=== PATIENT | male | born 1950 | race Caucasian/White ===

== ENCOUNTER → 2020-07-18 07:29 | Outpatient (CLI) | payer MEDICARE, SELFPAY ==
[2020-07-18 09:14] LABS: Add Manual Diff / Slide Review NO; Basophils Absolute Auto 0 /uL (0-100); Basophils Percent Auto 0.7 % (0-2); Eosinophils Absolute Auto 200 /uL (0-450); Eosinophils Percent Auto 3.7 % (2-4); Hematocrit 44.3 % (41-53); Hemoglobin 15.2 g/dL (13.5-17.5); Lymphocytes Absolute Auto 1400 /uL (1100-4500); Lymphocytes Percent Auto 24.1 % (25-40); Mean Corpuscular HGB Conc 34.4 % (30-36); Mean Corpuscular Hemoglobin 31.6 PG (26-34); Mean Corpuscular Volume 91.9 fL (80-100); Monocytes Absolute Auto 500 /uL (0-900); Neutrophils Absolute Auto 3700 /uL (1500-7000); Neutrophils Percent Auto 63.5 % (50-75); Platelet Count 141 X10^3/uL (150-400); Red Blood Cell Count 4.81 X10^6/uL (4.5-5.9); Red Cell Distribution Width 13.4 % (11.6-14.8); White Blood Cell Count 5.7 X10^3/uL (4.5-11.0)
[2020-07-18 09:49] LABS: Alanine Aminotransferase 22 IU/L (<50); Albumin 4.3 g/dL (3.5-5.0); Albumin Globulin Ratio 1.6 (1.0-2.8); Alkaline Phosphatase 71 U/L (38-126); Aspartate Aminotransferase 25 IU/L (17-59); BUN Creatinine Ratio 18.4 (6-22); Bilirubin Total 0.5 mg/dL (0.2-1.3); Blood Urea Nitrogen 16 mg/dL (9-20); Calcium 9.8 mg/dL (8.4-10.2); Carbon Dioxide 26 mmol/L (22-32); Chloride 106 mmol/L (98-107); Cholesterol 186 mg/dL (140-199); Estimated Glomerular Filt Rate > 60.0 mL/min (>60); Globulin 2.7 g/dL (1.7-4.1); Glucose 121 mg/dL (80-110); HDL Cholesterol 36 mg/dL (40-60); LDL Cholesterol Calculated 127 mg/dL (<100); Potassium 4.3 mmol/L (3.4-5.1); Sodium 141 mmol/L (137-145); Triglycerides 117 mg/dL (35-150)
[2020-07-18 11:22] LABS: Creatinine Urine Random 94.3 mg/dL
[2020-07-18 11:28] LABS: Microalbumin Urine Random 1.7 mg/dL (0-1.6)
[2020-07-18 17:58] LABS: HEMOLYSIS < 15 (0-50); Prostate Specific Antigen Scrn 9.58 ng/mL (0.1-4.0)
== END ==
PROVIDERS: PCP Family Medicine; Referring Provider Family Medicine; Visit Provider Family Medicine
DX: E66.9 Obesity, unspecified (principal); Z12.5 Encounter for screening for malignant neoplasm of prostate; I10 Essential (primary) hypertension; Z12.11 Encounter for screening for malignant neoplasm of colon
CPT/HCPCS: 36415; 80053; 80061; 82043; 82570; 85025; G0103

== ENCOUNTER 2020-08-26 08:56 | Emergency (ER) | payer MEDICARE, SELFPAY ==
[2020-08-26] VITALS (8 sets, daily range): BP systolic 171–238; BP diastolic 81–103; PULSE 69–83; RESP 12–16; TEMP 36.7; O2SAT 95–99
--- NOTE | 2020-08-26 10:06 | ED.ABDPAIN ---
HPI - Abdominal Pain General Chief Complaint: Abdominal Pain Stated Complaint: pain in left side, started Wednesday Time Seen by Provider: 08/26/20 10:06 Source: patient and family () Mode of arrival: Ambulatory Limitations: no limitations History of Present Illness HPI narrative: Pleasant 70-year-old male comes emergency department with complaint of left lower quadrant pain that started Wednesday. Patient notes that it did start after he had moved and lifted a heavy more but he does not appreciate any back pain. Patient states it did not seem to occur exactly when that happened he did not appreciate any tweaking or spasm of his muscles are back. Patient states since then he has had some nausea and he vomited twice on Wednesday. He states he has not had any bowel movement since Wednesday. He states he is not passing any gas or flatus. He states he has been urinating. He denies any back or flank pain. He denies any chest pain or shortness of breath. He denies any syncope. Patient states he does not take any medications regularly. He denies any other past medical history. He denies any prior surgeries. He denies any allergies to medications. No tobacco, alcohol or illicit. Dr. Tucker is his PCP. Related Data Previous Rx's Medication Instructions Recorded hydrocodone-acetaminophen 1 tab PO Q6H PRN #10 tab 08/26/20 tamsulosin [Flomax] 0.4 mg PO DAILY #7 cap 08/26/20 Allergies Allergy/AdvReac Type Severity Reaction Status Date / Time No Known Drug Allergies Allergy Verified 08/26/20 09:36 Review of Systems Review of Systems ROS Unobtainable: All systems reviewed & are unremarkable except as noted in HPI and below Patient History Surgical History Anesthesia History of Achilles tendon repair Family History (Updated 04/10/19 @ 19:31 by Tiffany Macdonald) Father Kidney failure Social History Smoking Status: Former smoker Smoking Status: Former smoker alcohol intake frequency: 0-2 drinks per day Substance Use Type: does not use Exam Narrative Exam Narrative: GENERAL: Alert and oriented x three, well-nourished male in mild distress. HEENT: Head normocephalic, atraumatic, EOMI, pupils reactive, face symmetric, moist mucous membranes NECK: Supple, full range of motion CARDIOVASCULAR: Regular rate and rhythm without murmurs, rubs or gallops. RESPIRATORY: Breath sounds equal bilaterally, no wheezes rales or rhonchi. ABDOMEN: Soft, nontender. Normoactive bowel sounds all 4 quadrants. No guarding or rebound, rigidity, no mass. BACK: No cervical, thoracic or lumbar vertebral point tenderness. Patient has normal range of motion. Patient's gait is [antalgic/normal]. : No CVA tenderness EXTREMITIES: Normal range of motion, no clubbing or edema. Neurovascularly intact. Cap refill less than 2 seconds. NEUROLOGICAL: Cranial nerves II through XII grossly intact. Moving all extremities SKIN: Warm, dry, no petechiae, no rashes or lesions. Initial Vital Signs Initial Vital Signs: Vital Signs Temperature 98.1 F 08/26/20 09:32 Pulse Rate 83 08/26/20 09:32 Respiratory Rate 14 08/26/20 09:32 Blood Pressure 238/103 H 08/26/20 09:32 Pulse Oximetry 96 08/26/20 09:32 Course Orders Ordered: ED Orders 08/26/20 12:13 CT abdomen pelvis w con Stat 08/26/20 12:40 UA Complete [Urinalysis and Microscopic] Stat Discontinued Medications Sodium Chloride (Normal Saline 0.9%) 1,000 mls @ 1,000 mls/hr IV BOLUS ONE Stop: 08/26/20 10:35 Last Infusion: 08/26/20 13:20 Dose: 0 mls/hr Documented by: JOSE M Admin: 08/26/20 11:18 Dose: 1,000 mls/hr Documented by: ROHAN Tamsulosin HCl (Tamsulosin 0.4 Mg Capsule) 0.4 mg PO NOW ONE Stop: 08/26/20 13:13 Last Admin: 08/26/20 13:20 Dose: 0.4 mg Documented by: JOSE M Vital Signs Vital signs: Vital Signs - 8 hr 08/26/20 11:30 08/26/20 12:00 08/26/20 13:32 Pulse Rate 69 69 82 Respiratory Rate 12 12 16 Blood Pressure 185/88 H 179/86 H 180/89 H Pulse Oximetry 99 97 97 MDM - Abdominal Pain Lab Data Attestation: I reviewed the patient's lab results. Result diagrams: 08/26/20 09:50 08/26/20 09:50 Labs: Lab Results 08/26/20 08/26/20 08/26/20 Range/Units 09:50 09:50 12:40 WBC 10.0 (4.5-11.0) X10^3/uL RBC 4.95 (4.5-5.9) X10^6/uL Hgb 15.6 (13.5-17.5) g/dL Hct 45.4 (41-53) % MCV 91.7 (80-100) fL MCH 31.4 (26-34) PG MCHC 34.3 (30-36) % RDW 13.9 (11.6-14.8) % Plt Count 156 (150-400) X10^3/uL Neut % (Auto) 80.4 H (50-75) % Lymph % (Auto) 10.1 L (25-40) % Casey % (Auto) 8.7 (3-14) % Eos % (Auto) 0.6 L (2-4) % Baso % (Auto) 0.2 (0-2) % Neut # (Auto) 8100 H (9622-7445) /uL Lymph # (Auto) 1000 L (4765-1336) /uL Casey # (Auto) 900 (0-900) /uL Eos # (Auto) 100 (0-450) /uL Baso # (Auto) 0 (0-100) /uL Sodium 140 (137-145) mmol/L Potassium 4.0 (3.4-5.1) mmol/L Chloride 105 (98-107) mmol/L Carbon Dioxide 24 (22-32) mmol/L BUN 19 (9-20) mg/dL Creatinine 1.20 (0.66-1.25) mg/dL Estimated GFR 59.9 L (>60) mL/min BUN/Creatinine Ratio 15.8 (6-22) Glucose 136 H (80-110) mg/dL Calcium 9.8 (8.4-10.2) mg/dL Total Bilirubin 1.0 (0.2-1.3) mg/dL AST 44 (17-59) IU/L ALT 22 (<50) IU/L Alkaline Phosphatase 76 (38-126) U/L Total Protein 7.8 (6.3-8.2) g/dL Albumin 4.4 (3.5-5.0) g/dL Globulin 3.4 (1.7-4.1) g/dL Albumin/Globulin Ratio 1.3 (1.0-2.8) Lipase 145 (23-300) U/L Urine Color Yellow Urine Appearance Clear Urine pH 5.5 (4.5-8.0) Ur Specific [place] 1.015 (1.000-1.035) Urine Protein Negative (Negative) Urine Glucose (UA) Negative (Negative) g/dL Urine Ketones Trace H (NEGATIVE) Urine Occult Blood 3+ H (Negative) Urine Nitrate Negative (Negative) Urine Bilirubin Negative (NEGATIVE) Urine Urobilinogen 0.2 (0.2) E.U./dL Ur Leukocyte Esterase Negative (NEGATIVE) Urine RBC 10-30/hpf H (0-5/HPF) Urine WBC 0-1/hpf (0-5/HPF) Ur Squamous Epith Cells 0-1 /hpf (0-5/HPF) Urine Bacteria Occasional (0-1) (None) Ur Culture Indicated? Cult not indicated Imaging Data CT scan - abdomen/pelvis: Radiologist's Impression: [address] Scan ReportSigned Patient: Johnny Madison LMR#: [id number]: 1950cct:[id number]/Sex: 70 / MDate of Service: 08/26/20Loc: EDAccession Number: [id number] Procedure: CT abdomen pelvis w con Ordering Provider: Terese Fuentes D.O. PROCEDURE: CT ABDOMEN PELVIS W CON INDICATIONS: LLQ pain, no BM/no flatus x 2 days, + N TECHNIQUE: After the administration of intravenous contrast, axial sections acquired from the lung bases to the pubic symphysis. Coronal and sagittal reformats were performed. For radiation dose reduction, the following was used: automated exposure control, adjustment of mA and/or kV according to patient size. COMPARISON: None. FINDINGS: Image quality: Excellent. Lung bases: Dependent atelectasis. Small hiatal hernia. Heart: No significant findings. There is moderate coronary artery calcification. ABDOMEN: Liver: Mild hepatic steatosis. Gallbladder: Contains gallstones. No gallbladder wall thickening or pericholecystic fluid collection. Biliary ducts: Unremarkable. Pancreas: Unremarkable. Spleen: Unremarkable. Adrenal Glands: Unremarkable. Kidneys and Ureters: Small renal calculi are seen bilaterally. There is a 4 mm stone in the inferior pole of the right kidney. A couple of 2-3 mm stones are seen in left kidney 1 in the superior pole and 1 in the inferior pole. There is a elongated stone in the proximal left ureter measuring 5 x [address] density 808 HU. Mild left renal pelviectasis and hydroureter proximal to the stone. Bilateral renal cysts.. Stomach and Bowel: Stomach, small bowel loops, and colon are normal in caliber. There is fat stranding adjacent to the descending colon, suggesting epiploic appendagitis. There is a large amount of stool in colon. Peritoneum: No abnormal intraperitoneal fluid. No free air. Ventral Wall: No hernias. Abdominal Nodes: No retroperitoneal or mesenteric adenopathy by size criteria. Vessels: Aorta and inferior vena cava are normal in size. PELVIS: Pelvic Organs: Unremarkable. Bladder: Bladder is distended. Bladder wall thickness is normal. Prostate is mildly enlarged.. Pelvic Nodes: No enlarged lymph nodes. Miscellaneous: No hernias are seen. Bones: Unremarkable. There is are degenerative disc and facet disease disease lower thoracic spine and lumbar spine, most pronounced at L5-S1. IMPRESSION: 1. A 5 x 11 mm obstructive stone is seen within the proximal left ureter measuring with CT density 808 HU. There is mild left hydronephrosis. Several nonobstructive renal calculi are seen bilaterally. 2. There is fat stranding adjacent to the descending colon, suggesting epiploic appendagitis. A differential diagnosis is diverticulitis. Recommend clinical correlation. 3. A large amount of stool in colon. 4. Cholelithiasis. 5. Prostate is prominent. Distended urinary bladder, which may be secondary to intentional holding or bladder outlet obstruction. The result was discussed with Dr. Fuentes Dictated by: Suad Peña M.D. on 08/26/2020 at 12:40 Approved by: Suad Peña M.D. on 08/26/2020 at 13:13 ECG Data Attestation: I personally reviewed and interpreted this ECG as follows: Prior ECG tracings: not available for review Interpretation: Sinus rhythm Q-wave in 3. No ST elevation or depression appreciated. MDM Narrative Medical decision making narrative: 70-year-old male with pain on his left side started Wednesday. About able to reproduce his symptoms but is appropriate location for possible kidney stone although he states pain is always been in the anterior and has not had any flank or back pain. Patient has been afebrile. Denies any other urinary symptoms but has had some nausea as well as he states no bowel movements or flatus. CT actually shows a kidney stone, there is also some epiploic appendagitis. Discussed both these findings with the patient that there was some inflammation of the fat in the bowel but this did not require any specific treatment. He was put on Flomax for the stone. Given a prescription for pain medication and referral to Urology as based on the size there may be some difficulty with him passing out he may need additional intervention. Today his renal functions appropriate. There is no signs of infection or obstructed stone or septic obstructive stone and patient felt comfortable returning home. All questions were answered. Return precautions were discussed. Discharge Plan Departure Patient Disposition: Home Clinical Impression: Kidney stone on left side Instructions: DI for Kidney Stones Activity Restrictions/Additional Instructions: Please follow-up with urology for recheck in the next 2-3 days. Included is referral to Urology please call for an appointment. Please take Flomax once daily until gone. You may take ibuprofen up to 800 mg every 8 hours as needed. You may take Tylenol up to a 1000 mg every 8 hours as needed. You may take these in combination. If this is an adequate you may take [place] instead of Tylenol. This medication can make you sleepy do not drive, perform hazardous activities or make any major decisions while taking it. This medication will make you constipated please take a stool softener once to twice daily until stools are soft and regular. Prescription sent to [facility] in [place]. Return for fevers, inability urinate, rapidly worsening abdominal, back or flank pain, persistent vomiting, black or bloody stools, lightheadedness or passing out or other new or concerning symptoms. Prescriptions: New tamsulosin [Flomax] 0.4 mg capsule 0.4 mg PO DAILY Qty: 7 RF: 0 hydrocodone-acetaminophen 5-325 mg tablet 1 tab PO Q6H PRN (Reason: pain) Qty: 10 RF: 0 Referrals: Apolinar Tucker MD [Primary Care Provider] - Kerline Sweeney MD [Physician] -
[2020-08-26 10:13] LABS: Add Manual Diff / Slide Review NO; Basophils Absolute Auto 0 /uL (0-100); Basophils Percent Auto 0.2 % (0-2); Eosinophils Absolute Auto 100 /uL (0-450); Eosinophils Percent Auto 0.6 % (2-4); Hematocrit 45.4 % (41-53); Hemoglobin 15.6 g/dL (13.5-17.5); Lymphocytes Absolute Auto 1000 /uL (1100-4500); Lymphocytes Percent Auto 10.1 % (25-40); Mean Corpuscular HGB Conc 34.3 % (30-36); Mean Corpuscular Hemoglobin 31.4 PG (26-34); Mean Corpuscular Volume 91.7 fL (80-100); Monocytes Absolute Auto 900 /uL (0-900); Monocytes Percent Auto 8.7 % (3-14); Neutrophils Absolute Auto 8100 /uL (1500-7000); Neutrophils Percent Auto 80.4 % (50-75); Platelet Count 156 X10^3/uL (150-400); Red Blood Cell Count 4.95 X10^6/uL (4.5-5.9); Red Cell Distribution Width 13.9 % (11.6-14.8)
[2020-08-26 10:18] LABS: Alanine Aminotransferase 22 IU/L (<50); Albumin 4.4 g/dL (3.5-5.0); Albumin Globulin Ratio 1.3 (1.0-2.8); Alkaline Phosphatase 76 U/L (38-126); Aspartate Aminotransferase 44 IU/L (17-59); BUN Creatinine Ratio 15.8 (6-22); Blood Urea Nitrogen 19 mg/dL (9-20); Calcium 9.8 mg/dL (8.4-10.2); Carbon Dioxide 24 mmol/L (22-32); Chloride 105 mmol/L (98-107); Estimated Glomerular Filt Rate 59.9 mL/min (>60); Globulin 3.4 g/dL (1.7-4.1); Glucose 136 mg/dL (80-110); HEMOLYSIS 21 (0-50); Lipase 145 U/L (23-300); Sodium 140 mmol/L (137-145); Total Protein 7.8 g/dL (6.3-8.2)
[2020-08-26] MEDS: SODIUM CHLORIDE 0.9% 1,000 ML 1000 ML IV (11:18)
--- NOTE | 2020-08-26 12:13 | DI.CT.S_ITS ---
PROCEDURE: CT ABDOMEN PELVIS W CON INDICATIONS: LLQ pain, no BM/no flatus x 2 days, + N TECHNIQUE: After the administration of intravenous contrast, axial sections acquired from the lung bases to the pubic symphysis. Coronal and sagittal reformats were performed. For radiation dose reduction, the following was used: automated exposure control, adjustment of mA and/or kV according to patient size. COMPARISON: None. FINDINGS: Image quality: Excellent. Lung bases: Dependent atelectasis. Small hiatal hernia. Heart: No significant findings. There is moderate coronary artery calcification. ABDOMEN: Liver: Mild hepatic steatosis. Gallbladder: Contains gallstones. No gallbladder wall thickening or pericholecystic fluid collection. Biliary ducts: Unremarkable. Pancreas: Unremarkable. Spleen: Unremarkable. Adrenal Glands: Unremarkable. Kidneys and Ureters: Small renal calculi are seen bilaterally. There is a 4 mm stone in the inferior pole of the right kidney. A couple of 2-3 mm stones are seen in left kidney 1 in the superior pole and 1 in the inferior pole. There is a elongated stone in the proximal left ureter measuring 5 x [address] density 808 HU. Mild left renal pelviectasis and hydroureter proximal to the stone. Bilateral renal cysts.. Stomach and Bowel: Stomach, small bowel loops, and colon are normal in caliber. There is fat stranding adjacent to the descending colon, suggesting epiploic appendagitis. There is a large amount of stool in colon. Peritoneum: No abnormal intraperitoneal fluid. No free air. Ventral Wall: No hernias. Abdominal Nodes: No retroperitoneal or mesenteric adenopathy by size criteria. Vessels: Aorta and inferior vena cava are normal in size. PELVIS: Pelvic Organs: Unremarkable. Bladder: Bladder is distended. Bladder wall thickness is normal. Prostate is mildly enlarged.. Pelvic Nodes: No enlarged lymph nodes. Miscellaneous: No hernias are seen. Bones: Unremarkable. There is are degenerative disc and facet disease disease lower thoracic spine and lumbar spine, most pronounced at L5-S1. IMPRESSION: 1. A 5 x 11 mm obstructive stone is seen within the proximal left ureter measuring with CT density 808 HU. There is mild left hydronephrosis. Several nonobstructive renal calculi are seen bilaterally. 2. There is fat stranding adjacent to the descending colon, suggesting epiploic appendagitis. A differential diagnosis is diverticulitis. Recommend clinical correlation. 3. A large amount of stool in colon. 4. Cholelithiasis. 5. Prostate is prominent. Distended urinary bladder, which may be secondary to intentional holding or bladder outlet obstruction. The result was discussed with Dr. Fuentes Dictated by: Suad Peña M.D. on 08/26/2020 at 12:40 Approved by: Suad Peña M.D. on 08/26/2020 at 13:13
[2020-08-26 12:54] LABS: Appearance Urine UA CLEAR; Bilirubin Urine UA NEGATIVE (NEGATIVE); Color Urine UA YELLOW; Glucose Urine UA NEGATIVE (Negative); Ketones Urine UA TRACE (NEGATIVE); Leukocyte Esterase Urine UA NEGATIVE (NEGATIVE); Nitrite Urine UA NEGATIVE (Negative); Occult Blood Urine UA 3+ (Negative); Protein Urine UA NEGATIVE (Negative); Specific Gravity Urine UA 1.015 (1.000-1.035); Urobilinogen Urine UA 0.2 E.U./dL (0.2); pH Urine UA 5.5 (4.5-8.0)
[2020-08-26 13:16] LABS: Bacteria Urine Occasional (0-1); Culture Indicated Urine Cult Not Indicated; RBC Urine 10-30/HPF (0-5/HPF); Squamous Epithelial Cell Urine 0-1 /HPF (0-5/HPF); WBC Urine 0-1/HPF (0-5/HPF)
[2020-08-26] MEDS: TAMSULOSIN 0.4 MG CAPSULE PO (13:20)
== END 2020-08-26 13:33 | disposition home or self-care (01) ==
PROVIDERS: Emergency Provider Emergency Medicine; PCP Family Medicine
DX: N20.0 Calculus of kidney (principal); R11.2 Nausea with vomiting, unspecified
CPT/HCPCS: 36415; 74177; 80053; 81001; 83690; 85025; 93005; 93010; 96360; 96361; 99284

== ENCOUNTER → 2020-08-28 13:29 | Outpatient (CLI) | payer MEDICARE, SELFPAY ==
--- NOTE | 2020-08-28 13:31 | DI.RAD.S_ITS ---
PROCEDURE: XR KUB INDICATIONS: L side kidney stone TECHNIQUE: One view of the abdomen acquired. COMPARISON: [facility], CT, CT ABDOMEN PELVIS W CON, 08/26/2020, 12:21. FINDINGS: Surgical changes and devices: None. Bowel: Bowel gas pattern is normal. Soft tissues: 3 millimeter calcification projects over the lower pole of the left kidney. Visualized solid organ contours appear normal in size. Bones: No suspicious bony lesions. IMPRESSION: 3 millimeter inferior left renal stone identified. Additional renal stones previously identified by CT scan obtained August 26, 2020 are not seen by plain film radiograph. Dictated by: Claudine Ramos MD, PhD on 08/28/2020 at 14:08 Approved by: Claudine Ramos MD, PhD on 08/28/2020 at 14:10
[2020-08-28 15:06] LABS: Prostate Specific Antigen 6.73 ng/mL (0.10-4.00)
[2020-08-28 17:39] LABS: COVID19 -Nasal RAPID Negative (Negative)
== END ==
PROVIDERS: PCP Family Medicine; Referring Provider Specialist; Visit Provider Specialist
DX: Z20.822 Contact with and (suspected) exposure to COVID-19 (principal); N20.0 Calculus of kidney; N20.1 Calculus of ureter; R97.20 Elevated prostate specific antigen [PSA]
CPT/HCPCS: 36415; 74018; 84153; 87635; 99215

== ENCOUNTER 2020-08-29 15:33 | Day surgery (SDC) | payer MEDICARE, SELFPAY ==
[2020-08-29 16:10] VITALS: BP 205/87; PULSE 81; RESP 16; TEMP 37.3; O2SAT 97; BMI 30.4
[2020-08-29] MEDS: LACTATED RINGERS 1,000 ML 42 ML IV (16:21)
--- NOTE | 2020-08-29 16:29 | PM.PREOP ---
Pre-operative Note Interval Note History & Physical reviewed/Exam performed by Physician: Yes Changes to H&P: No
[2020-08-29] MEDS: CEFAZOLIN 1 GM VIAL 2 GM IV (16:49)
--- NOTE | 2020-08-29 16:56 | SUR.OPER ---
Lithotomy on padded OR bed, head on pillow, arms secured on padded arm boards at <90 degrees abduction. Legs secured in padded yellow fins stirrups.
--- NOTE | 2020-08-29 16:59 | P.OP_ITS ---
Operative Date/Time/Diagnoses Date of procedure: 08/29/20 Time of procedure: 16:59 Pre-op diagnosis: Obstructing 5 x 12 mm left proximal ureteral calculus Intractable left renal colic Post-op diagnosis: same Procedure & Clinicians Procedure: 1. Cystoscopy/left ureteral stone manipulation without removal. 2. Cystoscopy placement left ureteral stent (7 [place] by 22-32 cm multi- length)./ Same procedure as scheduled: Yes Indications: 1. Obstructing 5 x 12 mm left proximal ureteral calculus. 2. Intractable left renal colic. Click Yes if Unassisted: Yes Anesthesia Type: General Operative Notes Findings: 1. Urethra-normal. 2. External sphincter-coapted normal overlying urothelium. 3. Prostate-4.5 +cm length with moderate trilobar hyperplasia. 4. Bladder-1+ trabeculation. Normal ureteral orifices bilaterally. Of its of stone, tumor, or foreign body. There was a small organizing fragmented clot line dependently on the bladder floor. Closure Type: not applicable Specimen(s): none sent Applied: other (#7 [place] x 22-32 cm multi-length stent) Estimated Blood Loss (mL): 0 Blood products transfused: none Procedure in detail: Patient was positioned supine administered general anesthesia. He was then repositioned in semi lithotomy and the lower abdomen, genitalia, and groin were then prepped and draped in sterile fashion. Twenty- two [place] panendoscope was then passed lower urinary tract with the findings as described above. Next a 0.35 hybrid ureteral guidewire was selected advanced left collecting system under direct and fluoroscopic guidance. Over this a 7 [place] by 22-32 cm multi-length stent was selected. This too was advanced under direct fluoroscopic guidance over the hybrid guidewire. NO RETRIEVAL LINE WAS LEFT ATTACHED. The patient was then repositioned supine, awakened, transferred to [facility] and then transferred to recovery in stable condition. Complications: none Post-operative Condition: stable Disposition: PACU Plan for aftercare: Discharge home.
[2020-08-29 17:06] VITALS: BP 155/76; PULSE 80; RESP 13; TEMP 37.1; O2SAT 96
[2020-08-29 17:11] VITALS: BP 151/80; PULSE 81; RESP 12; O2SAT 95
[2020-08-29 17:16] VITALS: BP 167/86; PULSE 81; RESP 12; O2SAT 96
[2020-08-29 17:28] VITALS: BP 177/88; PULSE 81; RESP 12; TEMP 37.5; O2SAT 97
[2020-08-29 17:38] VITALS: BP 203/89; PULSE 82; RESP 18; TEMP 37.8; O2SAT 96
--- NOTE | 2020-08-29 17:49 | SUR.PHASEI ---
Dr. Sweeney spoke with pt at bedside. Pt with no pain. tolerated po fluids. called, available for coal picker. Pt dressed.
--- NOTE | 2020-08-29 18:07 | SUR.PHASEII ---
Pt left unit in stable condition.
== END 2020-08-29 17:55 | disposition home or self-care (01) ==
PROVIDERS: PCP Family Medicine; Referring Provider Specialist; Visit Provider Specialist
PROC: (CPT 52330; principal; 2020-08-29 16:30)
DX: N20.1 Calculus of ureter (principal); N40.0 Benign prostatic hyperplasia without lower urinary tract symptoms; E66.9 Obesity, unspecified; Z68.29 Body mass index [BMI] 29.0-29.9, adult
CPT/HCPCS: 52330; 52332; J0690; J1100; J2405; J2704; J3010

== ENCOUNTER → 2020-09-11 07:45 | Outpatient (CLI) | payer MEDICARE, SELFPAY ==
[2020-09-11 13:53] LABS: COVID19 -Nasal RAPID Negative (Negative)
== END ==
PROVIDERS: PCP Family Medicine; Visit Provider Specialist
DX: Z20.822 Contact with and (suspected) exposure to COVID-19 (principal)
CPT/HCPCS: 87635; C9803

== ENCOUNTER 2020-09-13 06:48 | Day surgery (SDC) | payer MEDICARE, SELFPAY ==
[2020-09-10 09:08] VITALS: BMI 29.5
[2020-09-13] VITALS (7 sets, daily range): BP systolic 146–180; BP diastolic 78–98; PULSE 72–118; RESP 10–16; TEMP 36.1–37.4; O2SAT 93–110; BMI 29.5
[2020-09-13] MEDS: LACTATED RINGERS 500 ML 25 ML IV (07:25)
--- NOTE | 2020-09-13 07:36 | PM.PREOP ---
Pre-operative Note Interval Note History & Physical reviewed/Exam performed by Physician: Yes Changes to H&P: No
[2020-09-13] MEDS: CEFAZOLIN 1 GM VIAL 2 GM IV (07:49)
--- NOTE | 2020-09-13 08:00 | SUR.OPER ---
Lithotomy on padded OR bed, head on pillow, arms secured on padded arm boards at <90 degrees abduction. Legs secured in padded yellow fins stirrups.
[2020-09-13] MEDS: IOPAMIDOL 15 ML VIAL INJ (08:26)
--- NOTE | 2020-09-13 08:47 | SUR.OPER ---
SOLTIVE LASER TOTAL ENERGY 2.805 KJ TOTAL TIME 5:51 MIN
--- NOTE | 2020-09-13 08:56 | P.OP_ITS ---
Operative Date/Time/Diagnoses Date of procedure: 09/13/20 Time of procedure: 08:57 Pre-op diagnosis: 1. 6 x 12 mm left mid ureteral calculus. 2. Retained left ureteral stent. 3. Interval retrograde migration of stone to within the intrarenal collecting system (upper pole). Post-op diagnosis: same Procedure & Clinicians Procedure: 1. Cystoscopy and left ureteroscopic laser lithotripsy. 2. Cystoscopy and left ureteral stent exchange (6 [place] by 22-32 cm 3. Cystoscopy and left retrograde pyelogram. Same procedure as scheduled: Yes Indications: 1. History of 6 x 12 mm left mid ureteral calculus. 2. Retained left ureteral stent. Surgeon: Kerline Sweeney Click Yes if Unassisted: Yes Anesthesia Type: General Operative Notes Findings: 1. Urethra-normal caliber without annular stricture or lesion. 2. External sphincter- coapted with normal overlying urothelium. 3. Prostate-4+ cm length with moderate trilobar hyperplasia. 4. Bladder-1+ trabeculation. Normal right ureteral orifice. There is a indwelling left ureteral stent emanating from the left ureteral orifice with surrounding mild erythema and edema. 5. Left upper tract-index calculus was located in the left upper pole and was subsequently fragmented with the laser. Closure Type: not applicable Specimen(s): none sent Applied: other (Six [place] by 22-32 cm multi-length stent) Estimated Blood Loss (mL): 0 Blood products transfused: none Tourniquet time (min): 0 Procedure in detail: The patient was positioned supine and administered general anesthesia. He was then repositioned in semi lithotomy and the lower abdomen, groin, and genitalia were then prepped and draped in sterile fashion. The 22 [place] panendoscope was then passed lower urinary tract with the findings as described above. A foreign body grasper was then utilized to engage the distal end of the retained left ureteral stent and then it was withdrawn to just beyond the urethral meatus. A 0.35 hybrid guidewire was then advanced through the lumen of the retained left ureteral stent advanced proximally under direct and fluoroscopic guidance. The retained stent was then backloaded off the wire and discarded. Next, semi rigid ureteral scope was introduced and passed lower any tract and then left ureter and advanced proximally. Of the level of the pelvic brim no stone was visualized. Therefore, the semi-rigid ureteral scope was removed and the flexible ureteroscope was prepared. Prior to removal of the semi rigid ureteral scope a 2nd 0.35 hybrid guidewire was advanced into the left collecting system under direct and fluoroscopic guidance. The flexible ureteral scope was then advanced over this wire under direct and fluoroscopic guidance. Once within the intrarenal collecting system the guidewire was removed. Retrograde pyelogram was then performed. Inspection of the intrarenal collecting system identified the calculus in the left upper pole. A 200 micron fiber was then selected. All operating room personnel and patient were fitted with laser safety eyewear. Laser lithotripsy was then commenced with subsequent excellent fragmentation of the index calculus. The flexible ureteral scope was then removed. The 22 [place] panendoscope was then front loaded on the existing guidewire. Next, a 6 [place] by 22-32 cm multi-length stent was selected. The stent was advanced over the guidewire under direct and fluoroscopic guidance. A RETRIEVAL LINE WAS LEFT ATTACHED. The bladder was then drained completely and all instrumentation was removed. The patient was repositioned in supine, was awakened, and transported to recovery in stable condition. Complications: none Post-operative Condition: stable Disposition: PACU Plan for aftercare: Discharge home
== END 2020-09-13 10:11 | disposition home or self-care (01) ==
PROVIDERS: PCP Family Medicine; Referring Provider Specialist; Visit Provider Specialist
PROC: (CPT 52356; principal; 2020-09-13 07:45)
DX: N20.1 Calculus of ureter (principal); N40.0 Benign prostatic hyperplasia without lower urinary tract symptoms
CPT/HCPCS: 52356; 76000; 82962; J0690; J2250; J2405; J2704; J3010

== ENCOUNTER → 2020-09-26 11:04 | Outpatient (CLI) | payer MEDICARE, SELFPAY ==
[2020-10-04 22:03] LABS: Ca oxalate dihydrate 30 % (.); Ca oxalate monohydr 70 % (.)
== END ==
PROVIDERS: PCP Family Medicine; Visit Provider Specialist
DX: N20.0 Calculus of kidney (principal); N20.1 Calculus of ureter
CPT/HCPCS: 82365

== ENCOUNTER → 2020-10-02 12:02 | Outpatient (CLI) | payer MEDICARE, SELFPAY ==
[2020-10-02 13:05] LABS: BUN Creatinine Ratio 14.1 (6-22); Blood Urea Nitrogen 12 mg/dL (9-20); Calcium 9.7 mg/dL (8.4-10.2); Carbon Dioxide 23 mmol/L (22-32); Chloride 108 mmol/L (98-107); Estimated Glomerular Filt Rate > 60.0 mL/min (>60); Glucose 128 mg/dL (80-110); HEMOLYSIS < 15 (0-50); Potassium 3.9 mmol/L (3.4-5.1); Sodium 139 mmol/L (137-145); Uric Acid 6.3 mg/dL (3.5-8.5)
[2020-10-03 07:49] LABS: Calcium 9.4 mg/dL (8.6-10.2); Parathyroid Hormone, Intact 72 pg/mL (15-65)
== END ==
PROVIDERS: PCP Family Medicine; Referring Provider Specialist; Visit Provider Specialist
DX: N20.0 Calculus of kidney (principal); N20.1 Calculus of ureter
CPT/HCPCS: 36415; 80048; 82310; 83970; 84550

== ENCOUNTER → 2020-10-10 12:41 | Outpatient (CLI) | payer MEDICARE, SELFPAY ==
--- NOTE | 2020-10-10 12:42 | DI.CT.S_ITS ---
PROCEDURE: CT KIDNEY URETER BLADDER (KUB) INDICATIONS: Renal Calculi TECHNIQUE: Axial sections were acquired from the lung bases to the pubic symphysis. Coronal and sagittal reformats were performed. For radiation dose reduction, the following was used: automated exposure control, adjustment of mA and/or kV according to patient size. COMPARISON:[facility], CT, CT ABDOMEN PELVIS W CON, 08/26/2020, 12:21. [facility], CR, XR KUB, 08/28/2020, 13:40. FINDINGS: Image quality: Excellent. Lung bases: Lung bases are clear. Heart size is normal. Solid organs: Liver: The liver has no mass or intrahepatic biliary ductal dilatation. Biliary: There are multiple stones in the gallbladder. Pancreas: The pancreas has no mass or ductal dilatation. There is no surrounding inflammation. Spleen: Normal size. There are no masses. Adrenals: No hypertrophy or nodules. Kidneys: Both kidneys have multiple cysts. The right kidney has a peripelvic cyst measuring 2.8 centimeters and a cortical cyst measuring 1.9 centimeters, both in the midpole. The left kidney has multiple cortical cysts measuring 3.0 centimeters and 2.8 centimeters, both in the midpole; these are unchanged compared to the prior CT on 08/26/2020. No solid mass. 2 nonobstructing 2-3 millimeter stones in the left kidney previously described are not currently visible. Stone in the left proximal ureter seen on the prior CT is no longer present. Peritoneum and bowel: The distal esophagus and stomach are normal. The small bowel has a normal caliber and appearance. The terminal ileum is normal. The large bowel has increased stool consistent with constipation. The appendix is normal. No free fluid or air. Nodes and vessels: No retroperitoneal or mesenteric adenopathy by size criteria. Aorta and inferior vena cava are normal in size. Miscellaneous: No abdominal wall mass or hernia. PELVIS: Genitourinary: The bladder has no wall thickening or mass. No bladder calcifications. The prostate is prominent. Miscellaneous: There is a fat containing right inguinal hernia. Bones: No suspicious bony lesions. Multilevel degenerative changes are seen with intradiscal gas at L5-S1. IMPRESSION: 1. Previously seen stone in the left proximal ureter and 2 nonobstructive left renal calculi are no longer present. 2. Constipation. 3. Cholelithiasis. Dictated by: Tim Hackett M.D. on 10/10/2020 at 15:30 Approved by: Tim Hackett M.D. on 10/10/2020 at 15:41
== END ==
PROVIDERS: PCP Family Medicine; Referring Provider Specialist; Visit Provider Specialist
DX: N20.2 Calculus of kidney with calculus of ureter (principal); N28.1 Cyst of kidney, acquired; K80.20 Calculus of gallbladder without cholecystitis without obstruction; K59.00 Constipation, unspecified; K40.90 Unilateral inguinal hernia, without obstruction or gangrene, not specified as recurrent
CPT/HCPCS: 74176

== ENCOUNTER → 2021-03-10 08:54 | Outpatient (CLI) | payer MEDICARE, SELFPAY ==
--- NOTE | 2021-03-10 08:57 | DI.RAD.S_ITS ---
PROCEDURE: XR KUB INDICATIONS: Kidney stone TECHNIQUE: One view of the abdomen acquired. COMPARISON: [facility], CR, XR KUB, 08/28/2020, 13:40. [facility], CT, CT KIDNEY URETER BLADDER (KUB), 10/10/2020, 13:02. FINDINGS: Surgical changes and devices: None. Bowel: Bowel gas pattern is normal. Significant colonic stool. Soft tissues: No suspicious abdominal calcifications. Right renal calcification on prior CT is not visualized on current exam. However, renal shadow is obscured by overlying stool. Visualized solid organ contours appear normal in size. Bones: No suspicious bony lesions. IMPRESSION: No visualized stones. Dictated by: Jennifer Yeager M.D. on 03/10/2021 at 11:56 Approved by: Jennifer Yeager M.D. on 03/10/2021 at 11:58
[2021-03-10 10:36] LABS: Prostate Specific Antigen 9.12 ng/mL (0.10-4.00)
== END ==
PROVIDERS: PCP Family Medicine; Referring Provider Specialist; Visit Provider Specialist
DX: R97.20 Elevated prostate specific antigen [PSA] (principal); N20.1 Calculus of ureter
CPT/HCPCS: 36415; 74018; 84153

== ENCOUNTER → 2024-02-14 08:52 | Outpatient (CLI) | payer MEDICARE, SELFPAY ==
[2024-02-14 10:01] LABS: Add Manual Diff / Slide Review NO; Basophils Absolute Auto 100 /uL (0-100); Basophils Percent Auto 1.1 % (0-2); Eosinophils Absolute Auto 200 /uL (0-450); Eosinophils Percent Auto 3.2 % (2-4); Hematocrit 45.6 % (41-53); Hemoglobin 15.3 g/dL (13.5-17.5); Lymphocytes Absolute Auto 1600 /uL (1100-4500); Lymphocytes Percent Auto 27.4 % (25-40); Mean Corpuscular HGB Conc 33.6 % (30-36); Mean Corpuscular Hemoglobin 30.9 PG (26-34); Mean Corpuscular Volume 91.8 fL (80-100); Monocytes Absolute Auto 500 /uL (0-900); Monocytes Percent Auto 7.8 % (3-14); Neutrophils Absolute Auto 3500 /uL (1500-7000); Neutrophils Percent Auto 60.5 % (50-75); Platelet Count 146 X10^3/uL (150-400); Red Blood Cell Count 4.96 X10^6/uL (4.5-5.9); Red Cell Distribution Width 13.3 % (11.6-14.8); White Blood Cell Count 5.8 X10^3/uL (4.5-11.0)
[2024-02-14 10:21] LABS: Alanine Aminotransferase 23 IU/L (<50); Albumin 4.2 g/dL (3.5-5.0); Albumin Globulin Ratio 1.8 (1.0-2.8); Alkaline Phosphatase 60 U/L (38-126); Aspartate Aminotransferase 26 IU/L (17-59); BUN Creatinine Ratio 17.9 (6-22); Bilirubin Total 0.7 mg/dL (0.2-1.3); Blood Urea Nitrogen 17 mg/dL (9-20); Calcium 9.7 mg/dL (8.4-10.2); Carbon Dioxide 25 mmol/L (22-32); Chloride 107 mmol/L (98-107); Cholesterol 193 mg/dL (140-199); Estimated Glomerular Filt Rate > 60 mL/min (>60); Globulin 2.4 g/dL (1.7-4.1); Glucose 127 mg/dL (80-110); HDL Cholesterol 39 mg/dL (40-60); HEMOLYSIS 22 (0-50); LDL Cholesterol Calculated 131 mg/dL (<100); Potassium 4.6 mmol/L (3.4-5.1); Sodium 138 mmol/L (137-145); Total Protein 6.6 g/dL (6.3-8.2); Triglycerides 113 mg/dL (35-150)
[2024-02-14 10:27] LABS: Hemoglobin A1C% w Est Avg Glu 5.7 % (4.0-6.0)
[2024-02-14 10:51] LABS: Prostate Specific Antigen Scrn 12.6 ng/mL (0.1-4.0)
[2024-02-14 16:16] LABS: Hep C Virus Ab w/Reflex Quant NEGATIVE s/c (NEGATIVE)
== END ==
PROVIDERS: PCP Family Medicine; Referring Provider Family Medicine; Visit Provider Family Medicine
DX: N40.1 Benign prostatic hyperplasia with lower urinary tract symptoms (principal); N13.8 Other obstructive and reflux uropathy; E78.5 Hyperlipidemia, unspecified; Z12.5 Encounter for screening for malignant neoplasm of prostate; R97.20 Elevated prostate specific antigen [PSA]
CPT/HCPCS: 36415; 80053; 80061; 83036; 85025; 86803; G0103

== ENCOUNTER 2025-01-18 10:57 | Emergency (ER) | payer MEDICARE, SELFPAY ==
[2025-01-18] VITALS (40 sets, daily range): BP systolic 136–225; BP diastolic 76–117; PULSE 66–86; RESP 14–25; TEMP 36.9–37.2; O2SAT 92–96; BMI 29.7
--- NOTE | 2025-01-18 11:02 | EKG_ITS ---
[address] [address] Test Date: 2025-01-18 Pat Name: Johnny Madison Department: Room: Gender: Male Event Technician: BERENICE : 1950 Requested By: Order Number: [id number] Reading MD: Dread Gomes MD Measurements Intervals [place] Rate: 86 P: 49 DC: 164 QRS: 92 QRSD: 84 T: 116 QT: 374 QTc: 447 Interpretive Statements Normal sinus rhythm Rightward axis ST & T wave abnormality, consider lateral ischemia Electronically Signed On 01-18-2025 14:36:25 PST by Dread Gomes MD
--- NOTE | 2025-01-18 11:13 | DI.RAD.S_ITS ---
PROCEDURE: XR CHEST 1V INDICATIONS: Shortness of breath TECHNIQUE: One view of the chest was acquired. COMPARISON: None. FINDINGS: Moderate bilateral perihilar and lower lobe peribronchial thickening with patchy predominantly lower lobe opacities. Bronchopneumonia, early findings of pneumonia, viral infection, aspiration pneumonitis or other process should be considered. Follow-up is needed. Mildly enlarged cardiopericardial silhouette. Mild blunting bilateral costophrenic angles, small pleural effusions, pleural thickening. Calcifications of the aortic arch. Mildly prominent pro, mildly prominent pulmonary vessels and/or hilar lymph nodes. No pneumothorax. IMPRESSION: Peribronchial thickening and patchy opacities as discussed above. Follow-up is needed. Suspected small pleural effusions. Mildly prominent pro. If symptoms persist or worsen, CT chest could be performed. Dictated by: Edgar Franks M.D. on 01/18/2025 at 11:55 Approved by: Edgar Franks M.D. on 01/18/2025 at 11:58
[2025-01-18 11:47] LABS: Add Manual Diff / Slide Review NO; Hematocrit 46.0 % (41-53); Hemoglobin 15.7 g/dL (13.5-17.5); Lymphocytes Absolute Auto 1100 /uL (1100-4500); Mean Corpuscular HGB Conc 34.1 % (30-36); Mean Corpuscular Hemoglobin 30.6 PG (26-34); Mean Corpuscular Volume 89.6 fL (80-100); Platelet Count 138 X10^3/uL (150-400)
[2025-01-18 11:56] LABS: INR 1.1 (0.9-1.3); Prothrombin Time 13.0 SECONDS (9.4-12.5)
[2025-01-18 12:02] LABS: Lactate (Lactic Acid) 1.5 mmol/L (0.7-2.1)
[2025-01-18 12:05] LABS: Alanine Aminotransferase 31 IU/L (<50); Albumin 4.6 g/dL (3.5-5.0); Albumin Globulin Ratio 1.4 (1.0-2.8); Alkaline Phosphatase 56 U/L (38-126); Blood Urea Nitrogen 20 mg/dL (9-20); Calcium 9.4 mg/dL (8.4-10.2); Carbon Dioxide 21 mmol/L (22-32); Chloride 107 mmol/L (98-107); Estimated Glomerular Filt Rate > 60 mL/min (>60); Globulin 3.2 g/dL (1.7-4.1); Glucose 123 mg/dL (70-99); HEMOLYSIS 232 (0-50); Potassium 4.9 mmol/L (3.4-5.1); Sodium 138 mmol/L (137-145); Total Protein 7.8 g/dL (6.3-8.2)
[2025-01-18 12:18] LABS: NT-proBNP (BNP-Adult 18+) 3610 pg/mL (<125)
[2025-01-18 12:42] LABS: Troponin I 1.880 ng/mL (0.01-0.034)
--- NOTE | 2025-01-18 12:50 | ED.CHESTPAIN ---
HPI - Chest Pain General Chief Complaint: Shortness of Breath/Dyspnea Stated Complaint: possible Heart Attack, this morning sent from PCP Time Seen by Provider: 01/18/25 12:49 Source: patient, RN notes reviewed, old records reviewed and other (Dr. Tucker/PCP) Mode of arrival: Ambulatory Limitations: no limitations Limitations: no limitations History of Present Illness HPI narrative: 74-year-old male history of hypertension presents with complaint of chest discomfort and shortness of breath with the exertion has noted some right shoulder/elbow pain recently as well although that has been stable. He went to primary care today who referred him to the emergency department after noting some EKG changes patient was asymptomatic in the office. Patient notes he has had chronic right shoulder pain that is worse with movement. He states that is present right now when I move his arm it hurts. He also notes he has had intermittent substernal chest pain that radiates over to the right side a little bit. He gets short of breath he notes with the exertion he has actually been decreasing activity to keep himself from having symptoms. He gets short of breath with these episodes he denies any diaphoresis. No nausea or vomiting. No syncope. No new swelling in his extremities no GI or urinary symptoms. He states it has been going on for at least a couple of weeks. He denies any active chest pain currently. He states it is only medication is potassium citrate for prior kidney stones he denies any daily medications for hypertension, dyslipidemia he denies any aspirin or thinners. He states surgically he has a prior surgical excision of a cyst but denies any other prior cardiac or surgical history. No known drug allergies. No tobacco, alcohol or recreational drugs. Dr. Tucker is his primary care physician. He is accompanied by his . Related Data Home Medications ?Medication ?Instructions ?Recorded ?Confirmed ibuprofen 200 mg tablet 200 mg PO Q4H PRN 01/18/25 01/18/25 potassium citrate 99 mg capsule mg PO 01/18/25 01/18/25 Previous Rx's ?Medication ?Instructions ?Recorded losartan 100 1 tab PO DAILY #60 tabs 01/18/25 mg-hydrochlorothiazide 12.5 mg tablet metoprolol succinate 25 mg 25 mg PO DAILY #60 tabs 01/18/25 tablet,extended release 24 hr Allergies Allergy/AdvReac Type Severity Reaction Status Date / Time No Known Drug Allergies Allergy Verified 01/18/25 11:14 Review of Systems Review of Systems ROS Unobtainable: All systems reviewed & are unremarkable except as noted in HPI and below Patient History Medical History Exertional dyspnea Hypertension BPH w urinary obs/LUTS Right nephrolithiasis Elevated PSA Bilateral nephrolithiasis Left ureteral calculus Surgical History Hx of cystoscopy (08/29/20) Anesthesia History of Achilles tendon repair Family History Father Kidney failure Social History marital status: number of children: 2 household members: spouse lives independently: Yes caregiver/support person: No housing: house pets and animals: No education level: college occupational status: unemployed alyssa/l[employer] day: [employer] special alyssa needs: No travel history: other seatbelt use: always helmet use: Yes water heater temp set < 120 deg: Yes working smoke detector in home: Yes fire extinguisher in home: Yes carbon monox detector in home: Yes firearms in home: Yes (maybe) firearms unloaded and locked: No do you feel safe at home: Yes Smoking Status: Unknown if ever smoked alcohol intake: current Smoking Status: Unknown if ever smoked alcohol intake frequency: a few times a week Exam Narrative Exam Narrative: GENERAL: Alert and oriented x three, male in mild distress HEENT: Head normocephalic, atraumatic, EOMI, pupils reactive, face symmetric, moist mucous membranes NECK: Supple, full range of motion CARDIOVASCULAR: Regular rate and rhythm without murmurs, rubs or gallops. No JVD. No edema bilateral lower extremities. RESPIRATORY: Breath sounds equal bilaterally, no wheezes rales or rhonchi. No tachypnea or accessory muscle use. ABDOMEN: Soft, nontender. Normoactive bowel sounds all 4 quadrants. No guarding or rebound, rigidity, no mass : No CVA tenderness EXTREMITIES: Normal range of motion, no clubbing or edema. Neurovascularly intact NEUROLOGICAL: Cranial nerves II through XII grossly intact. Moving all extremities SKIN: Warm, dry, no petechiae, no rashes or lesions. Initial Vital Signs Initial Vital Signs: Vital Signs Temperature 98.5 F 01/18/25 10:58 Pulse Rate 86 01/18/25 10:58 Respiratory Rate 14 01/18/25 10:58 Blood Pressure 209/113 H 01/18/25 10:58 Pulse Oximetry 94 01/18/25 10:58 Oxygen Delivery Method Room Air 01/18/25 10:58 Course Orders Ordered: Discontinued Medications Aspirin (Aspirin 81 Mg Chew Tab) 324 mg PO NOW ONE Stop: 01/18/25 12:55 Last Admin: 01/18/25 13:02 Dose: 324 mg Documented By: BLAYNE Furosemide (Furosemide 40 Mg/4 Ml Vial) 40 mg IV NOW ONE Stop: 01/18/25 13:17 Last Admin: 01/18/25 13:39 Dose: 40 mg Documented By: BLAYNE Heparin Sodium (Porcine) (Heparin 5,000 Unit/Ml Vial) 5,000 unit IV NOW ONE Stop: 01/18/25 12:55 Last Admin: 01/18/25 13:02 Dose: 5,000 unit Documented By: BLAYNE Heparin Sodium/Dextrose (Heparin Drip) 25,000 unit in 500 mls @ 24.494 mls/hr IV CONT LUIS ALBERTO; Protocol Last Titration: 01/18/25 20:25 Dose: 0 units/kg/hr, 0 mls/hr Documented By: BLAYNE Co-signed By: LEONARD Admin: 01/18/25 13:03 Dose: 12 units/kg/hr, 24.494 mls/hr Documented By: BLAYNE Co-signed By: JAYLON Labetalol HCl (Labetalol 20 Mg/4 Ml Syringe) 10 mg IV NOW ONE Stop: 01/18/25 14:36 Last Admin: 01/18/25 14:53 Dose: 10 mg Documented By: BLAYNE Losartan Potassium (Losartan 25 Mg Tablet) 25 mg PO NOW ONE Stop: 01/18/25 14:36 Last Admin: 01/18/25 14:52 Dose: 25 mg Documented By: BLAYNE Metoprolol Tartrate (Metoprolol Tartrate 5 Mg/5 Ml Inj) 5 mg IV Q5M [facility] Stop: 01/18/25 14:41 Last Admin: 01/18/25 16:02 Dose: Not Given Documented By: Admin: 01/18/25 15:35 Dose: Not Given Documented By: BLAYNE Nitroglycerin (Nitroglycerin 0.4 Mg Sl Tab) 0.4 mg SL NOW ONE Stop: 01/18/25 13:08 Last Admin: 01/18/25 13:18 Dose: 0.4 mg Documented By: BLAYNE Nitroglycerin (Nitroglycerin Oint 1 Inch/Gm Oint...G.) 1 inch TOP NOW ONE Stop: 01/18/25 13:25 Last Admin: 01/18/25 13:38 Dose: 1 inch Documented By: BLAYNE Vital Signs Vital signs: Vital Signs - 8 hr 01/18/25 10:58 01/18/25 11:49 01/18/25 11:49 Temperature 98.5 F Pulse Rate 86 80 Respiratory Rate 14 15 Blood Pressure 209/113 H 213/117 H Pulse Oximetry 94 96 Oxygen Delivery Method Room Air 01/18/25 12:00 01/18/25 12:00 01/18/25 12:30 Temperature Pulse Rate 78 Respiratory Rate 18 Blood Pressure 194/112 H 213/106 H Pulse Oximetry 94 Oxygen Delivery Method 01/18/25 12:30 01/18/25 13:00 01/18/25 13:00 Temperature Pulse Rate 79 83 Respiratory Rate 16 19 Blood Pressure 225/114 H Pulse Oximetry 94 94 Oxygen Delivery Method 01/18/25 13:23 01/18/25 13:23 01/18/25 13:30 Temperature Pulse Rate 81 Respiratory Rate 18 Blood Pressure 186/96 H 189/101 H Pulse Oximetry 93 Oxygen Delivery Method 01/18/25 13:30 01/18/25 13:38 01/18/25 13:45 Temperature Pulse Rate 79 Respiratory Rate 17 Blood Pressure 189/101 H 206/110 H Pulse Oximetry 92 Oxygen Delivery Method 01/18/25 13:45 01/18/25 14:00 01/18/25 14:00 Temperature Pulse Rate 80 80 Respiratory Rate 19 17 Blood Pressure 205/113 H Pulse Oximetry 95 94 Oxygen Delivery Method 01/18/25 14:15 01/18/25 14:15 01/18/25 14:30 Temperature Pulse Rate 86 Respiratory Rate 19 Blood Pressure 195/101 H 204/108 H Pulse Oximetry 94 Oxygen Delivery Method 01/18/25 14:30 01/18/25 14:45 01/18/25 14:45 Temperature Pulse Rate 79 85 Respiratory Rate 15 24 Blood Pressure 195/106 H Pulse Oximetry 93 94 Oxygen Delivery Method 01/18/25 14:52 01/18/25 14:53 01/18/25 15:00 Temperature Pulse Rate 79 80 Respiratory Rate Blood Pressure 195/106 H 195/106 H 191/105 H Pulse Oximetry Oxygen Delivery Method 01/18/25 15:00 01/18/25 15:15 01/18/25 15:15 Temperature Pulse Rate 74 76 Respiratory Rate 20 19 Blood Pressure 174/101 H Pulse Oximetry 95 Oxygen Delivery Method 01/18/25 15:30 01/18/25 15:30 01/18/25 16:03 Temperature Pulse Rate 66 67 Respiratory Rate 18 Blood Pressure 171/97 H 171/97 H Pulse Oximetry 94 Oxygen Delivery Method MDM - Chest Pain Lab Data 01/18/25 11:38 01/18/25 11:33 Labs: Lab Results 01/18/25 01/18/25 01/18/25 Range/Units 11:33 11:35 11:38 WBC 6.5 (4.5-11.0) X10^3/uL RBC 5.14 (4.5-5.9) X10^6/uL Hgb 15.7 (13.5-17.5) g/dL Hct 46.0 (41-53) % MCV 89.6 (80-100) fL MCH 30.6 (26-34) PG MCHC 34.1 (30-36) % RDW 13.3 (11.6-14.8) % Plt Count 138 L (150-400) X10^3/uL Neut % (Auto) 71.9 (50-75) % Lymph % (Auto) 16.5 L (25-40) % [place] % (Auto) 8.7 (3-14) % Eos % (Auto) 1.6 L (2-4) % Baso % (Auto) 1.3 (0-2) % Neut # (Auto) 4700 (8793-4618) /uL Lymph # (Auto) 1100 (3300-2461) /uL [place] # (Auto) 600 (0-900) /uL Eos # (Auto) 100 (0-450) /uL Baso # (Auto) 100 (0-100) /uL PT 13.0 H (9.4-12.5) SECONDS INR 1.1 (0.9-1.3) APTT 30 (25.1-36.5) SECONDS Sodium 138 (137-145) mmol/L Potassium 4.9 (3.4-5.1) mmol/L Chloride 107 (98-107) mmol/L Carbon Dioxide 21 L (22-32) mmol/L BUN 20 (9-20) mg/dL Creatinine 0.97 (0.66-1.25) mg/dL Estimated GFR > 60 (>60) mL/min BUN/Creatinine Ratio 20.6 (6-22) Glucose 123 H (70-99) mg/dL Lactate 1.5 (0.7-2.1) mmol/L Calcium 9.4 (8.4-10.2) mg/dL Total Bilirubin 1.8 H (0.2-1.3) mg/dL AST 63 H (17-59) IU/L ALT 31 (<50) IU/L Alkaline Phosphatase 56 (38-126) U/L Troponin I 1.880 H* (0.01-0.034) ng/mL NT-Pro-B Natriuret Pep 3610 H (<125) pg/mL Total Protein 7.8 (6.3-8.2) g/dL Albumin 4.6 (3.5-5.0) g/dL Globulin 3.2 (1.7-4.1) g/dL Albumin/Globulin Ratio 1.4 (1.0-2.8) 01/18/25 01/18/25 Range/Units 13:40 19:53 WBC (4.5-11.0) X10^3/uL RBC (4.5-5.9) X10^6/uL Hgb (13.5-17.5) g/dL Hct (41-53) % MCV (80-100) fL MCH (26-34) PG MCHC (30-36) % RDW (11.6-14.8) % Plt Count (150-400) X10^3/uL Neut % (Auto) (50-75) % Lymph % (Auto) (25-40) % [place] % (Auto) (3-14) % Eos % (Auto) (2-4) % Baso % (Auto) (0-2) % Neut # (Auto) (5068-4732) /uL Lymph # (Auto) (0948-2450) /uL [place] # (Auto) (0-900) /uL Eos # (Auto) (0-450) /uL Baso # (Auto) (0-100) /uL PT (9.4-12.5) SECONDS INR (0.9-1.3) APTT 99 H* D (25.1-36.5) SECONDS Sodium (137-145) mmol/L Potassium (3.4-5.1) mmol/L Chloride (98-107) mmol/L Carbon Dioxide (22-32) mmol/L BUN (9-20) mg/dL Creatinine (0.66-1.25) mg/dL Estimated GFR (>60) mL/min BUN/Creatinine Ratio (6-22) Glucose (70-99) mg/dL Lactate (0.7-2.1) mmol/L Calcium (8.4-10.2) mg/dL Total Bilirubin (0.2-1.3) mg/dL AST (17-59) IU/L ALT (<50) IU/L Alkaline Phosphatase (38-126) U/L Troponin I 2.060 H* (0.01-0.034) ng/mL NT-Pro-B Natriuret Pep (<125) pg/mL Total Protein (6.3-8.2) g/dL Albumin (3.5-5.0) g/dL Globulin (1.7-4.1) g/dL Albumin/Globulin Ratio (1.0-2.8) MDM Narrative Medical decision making narrative: EKG shows sinus rhythm rate 86 WA 164 QRS 84 QTC of 447, no acute ST-elevation patient has a depression in lateral V4 5 as well as little bit in 2 3 and AVF. Patient has a prior from 08/26/2020 that has sinus rhythm without any ST depression at that time. Labs, show normal white count, hemoglobin, platelets are 138 patient has been chronically thrombocytopenic since 2020. INR is 1.1, CO2 is 21 electrolytes are appropriate BUN and creatinine normal glucose is 123 lactate 1.5 bilirubin is 1.8 AST 63 ALT is normal at 31 patient's troponins 1.88, BNP is 3610. Repeat troponin Chest x-ray, peribronchial thickening patchy opacities suspected small pleural effusions. Moderate enlarged cardiopericardial silhouette mild blunting bilateral costophrenic angles small pleural effusions pleural thickening. Calcifications aortic arch mild prominent pro mild prominent pulmonary vessels and hilar nodes no pneumothorax. Patient received aspirin, heparin, nitro sublingual and nitropaste. Patient has had labetalol, losartan p.o. as well as Lasix. Patient diuresed out 1500 mL after Lasix. Blood pressure although still somewhat elevated has been improving to 160-170 range. Patient continues to be asymptomatic/ Spoke with coordinator at [facility] @ 1419: Spoke with hospitalist, Dr. Paez accepts for transfer at [facility]. Reviewed patient's findings he would like to hold the metoprolol and switch patient over to labetalol IV, asked if we can give a dose of oral losartan as well reviewed all patient's labs, EKG workup he has been hypertensive current blood pressure is 195/[address] paste in [address] which has decreased his blood pressure but is still quiet hypertensive. Critical Care Time Critical Care Time Critical Care Time: Yes Total Critical Care Time: 40 Attestation: The high probability of a clinically significant, sudden or life threatening deterioration of the cardiac/pulmonary system(s) required my full and direct attention, intervention and personal management. The aggregate critical care time was [--] minutes. This time is in addition to time spent performing reported procedures but includes the following: [x] Data Review and interpretation [x] Patient assessment and monitoring of vital signs [x] Documentation [x] Medication orders and management Discharge Plan [facility] Impression: Non-ST elevation IN (NSTEMI) Prescriptions: No Action ibuprofen 200 mg tablet 200 mg PO Q4H PRN potassium citrate 99 mg capsule PO metoprolol succinate 25 mg tablet extended release 24 hr 25 mg PO DAILY Qty: 60 0RF losartan-hydrochlorothiazide 100-12.5 mg tablet 1 tab PO DAILY Qty: 60 1RF Referrals: Apolinar Tucker MD [Primary Care Provider, Family Practice]
[2025-01-18] MEDS: ASPIRIN 81 MG CHEW TAB 324 MG PO (13:02)
[2025-01-18] MEDS: HEPARIN 5,000 UNIT/ML VIAL 5000 UNIT IV (13:02)
[2025-01-18] MEDS: HEPARIN DRIP 25,000 UNIT/500 ML IV.SOLN 24.494 UNIT IV (13:03)
[2025-01-18 13:04] LABS: PTT Partial Thromboplastin Tim 30 SECONDS (25.1-36.5)
[2025-01-18] MEDS: NITROGLYCERIN 0.4 MG SL TAB SL (13:18)
[2025-01-18] MEDS: NITROGLYCERIN OINT 1 INCH/GM OINT...G. TOP (13:38)
[2025-01-18] MEDS: FUROSEMIDE 40 MG/4 ML VIAL IV (13:39)
[2025-01-18 14:21] LABS: Troponin I 2.060 ng/mL (0.01-0.034)
[2025-01-18] MEDS: LOSARTAN 25 MG TABLET PO (14:52)
[2025-01-18] MEDS: LABETALOL 20 MG/4 ML SYRINGE 10 MG IV (14:53)
[2025-01-18 20:20] LABS: PTT Partial Thromboplastin Tim 99 SECONDS (25.1-36.5)
--- NOTE | 2025-01-18 21:39 | PC.NURSE ---
2139: attempted report for second time, no answer. 2030: attempted report, was told the RN is busy with other patients, left ED phone number, will call back
== END 2025-01-18 20:45 | disposition short-term general hospital (02) ==
PROVIDERS: Emergency Provider Emergency Medicine; PCP Family Medicine
DX: I21.4 Non-ST elevation (NSTEMI) myocardial infarction (principal); R06.02 Shortness of breath; I10 Essential (primary) hypertension
CPT/HCPCS: 36415; 71045; 80053; 83605; 83880; 84484; 85025; 85610; 85730; 93005; 96365; 96366; 96375; 99284; J1644; J1938

== ENCOUNTER → 2025-01-24 13:33 | Outpatient (CLI) | payer MEDICARE, SELFPAY ==
--- NOTE | 2025-01-24 13:47 | DI.RAD.S_ITS ---
PROCEDURE: XR ELBOW RT MIN 3V INDICATIONS: right shoulder, wrist, elbow pain TECHNIQUE: Three views of the elbow were acquired. COMPARISON: None. FINDINGS: Bones: No fractures or dislocations. No suspicious bony lesions. Minor enthesopathy at the common flexor tendon origin. Moderate smooth enthesopathy at the triceps tendon insertion. Soft tissues: No elbow joint effusion. No suspicious soft tissue calcifications. IMPRESSION: No acute bony abnormality or significant joint effusion. Dictated by: Es Edmondson M.D. on 01/26/2025 at 22:42 Approved by: Es Edmondson M.D. on 01/26/2025 at 22:43
--- NOTE | 2025-01-24 13:47 | DI.RAD.S_ITS ---
PROCEDURE: XR WRIST RT MIN 3V INDICATIONS: right shoulder, wrist, elbow pain TECHNIQUE: Four views of the wrist were acquired. COMPARISON: None. FINDINGS: Bones: No fractures or dislocations. No suspicious bony lesions. Joint space loss and mild spurring at the 2nd and 3rd MCP joints. Radiocarpal joint space loss with mild sclerosis and spurring of the radius. Soft tissues: No suspicious soft tissue calcifications. IMPRESSION: Scattered, mild degeneration. Dictated by: Es Edmondson M.D. on 01/26/2025 at 22:39 Approved by: Es Edmondson M.D. on 01/26/2025 at 22:40
--- NOTE | 2025-01-24 13:47 | DI.RAD.S_ITS ---
PROCEDURE: XR SHOULDER RT MIN 2V INDICATIONS: right shoulder, wrist, elbow pain TECHNIQUE: Three views of the shoulder were acquired. COMPARISON: None. FINDINGS: Bones: No fractures or dislocations. No suspicious bony lesions. Mild undersurface spurring at the acromioclavicular joint. Mild glenohumeral joint space loss without significant osteophytosis. Visualized ribs appear intact. Soft tissues: No suspicious soft tissue calcifications. IMPRESSION: Mild degenerative change. Dictated by: Es Edmondson M.D. on 01/26/2025 at 22:47 Approved by: Es Edmondson M.D. on 01/26/2025 at 22:47
--- NOTE | 2025-01-24 13:47 | DI.RAD.S_ITS ---
PROCEDURE: XR CHEST 2V INDICATIONS: exertional chest pain TECHNIQUE: 2 views of the chest were acquired. COMPARISON: [facility], CR, XR CHEST 1V, 01/18/2025, 11:29. FINDINGS: Surgical changes and devices: None. Lungs and pleura: Blunting of both costophrenic sulci, similar extent compared to prior. Small horizontal opacities at both lung bases. Small amount fluid in the major fissures. No other focal airspace opacity. Mild diffuse interstitial thickening in the perihilar regions predominantly. Mediastinum: Heart size within normal limits. Slight cephalization of central vessels without significant engorgement. Stable aortic contour. Bones and chest wall: No suspicious bony abnormalities. Soft tissues appear unremarkable. IMPRESSION: Small bilateral pleural effusions, similar to probably slightly increased compared to prior. Slightly decreased central vascular congestion. Bibasilar opacities likely incorporate a component of compressive atelectasis. Dictated by: Es Edmondson M.D. on 01/26/2025 at 22:44 Approved by: Es Edmondson M.D. on 01/26/2025 at 22:46
[2025-01-24 15:46] LABS: Add Manual Diff / Slide Review NO; Hematocrit 41.6 % (41-53); Hemoglobin 14.3 g/dL (13.5-17.5); Lymphocytes Absolute Auto 1300 /uL (1100-4500); Mean Corpuscular HGB Conc 34.3 % (30-36); Mean Corpuscular Hemoglobin 31.0 PG (26-34); Mean Corpuscular Volume 90.2 fL (80-100); Platelet Count 165 X10^3/uL (150-400)
[2025-01-24 16:15] LABS: Alanine Aminotransferase 35 IU/L (<50); Albumin 3.9 g/dL (3.5-5.0); Albumin Globulin Ratio 1.5 (1.0-2.8); Alkaline Phosphatase 62 U/L (38-126); Blood Urea Nitrogen 18 mg/dL (9-20); Calcium 9.5 mg/dL (8.4-10.2); Carbon Dioxide 23 mmol/L (22-32); Chloride 103 mmol/L (98-107); Cholesterol 112 mg/dL (140-199); Estimated Glomerular Filt Rate > 60 mL/min (>60); Globulin 2.6 g/dL (1.7-4.1); Glucose 109 mg/dL (70-99); HDL Cholesterol 31 mg/dL (40-60); HEMOLYSIS 23 (0-50); Potassium 4.0 mmol/L (3.4-5.1); Sodium 138 mmol/L (137-145); Total Protein 6.5 g/dL (6.3-8.2); Triglycerides 105 mg/dL (35-150)
[2025-01-24 16:47] LABS: Microalbumi Creatinin Ratio Ur 14.0 ug/mg CR (<30)
[2025-01-24 17:30] LABS: TSH w/ Reflex to FT4 10.30 uIU/mL (0.47-4.68)
[2025-01-24 17:55] LABS: Free T4, Direct Thyroxine 1.08 ng/dL (0.78-2.19)
== END ==
PROVIDERS: PCP Family Medicine; Referring Provider Family Medicine; Visit Provider Family Medicine
DX: Z12.5 Encounter for screening for malignant neoplasm of prostate (principal); M25.511 Pain in right shoulder; M25.531 Pain in right wrist; M25.521 Pain in right elbow; R07.9 Chest pain, unspecified; R97.20 Elevated prostate specific antigen [PSA]; J90 Pleural effusion, not elsewhere classified; I21.4 Non-ST elevation (NSTEMI) myocardial infarction; I10 Essential (primary) hypertension; R06.09 Other forms of dyspnea; E66.9 Obesity, unspecified
CPT/HCPCS: 36415; 71046; 73030; 73080; 73110; 80053; 80061; 82043; 82570; 84439; 84443; 85025; G0103

== ENCOUNTER → 2025-03-05 08:03 | Outpatient (CLI) | payer MEDICARE, SELFPAY ==
--- NOTE | 2025-03-05 08:04 | DI.ECHO.S_ITS ---
[place] [facility]---------+ [facility] : : [id number] : : [place] : : [id number] : : Phone: [phone] Echocardiogram Report + + :Name: KENDY RAINES Study Date: 03/05/2025 Height: 73 in : :[facility] ReadingLocation: Weight: 200 lb : : Gender: Male BSA: 2.2 m2 : :: 1950 Age: 74 yrs BP: 152/74 mmHg: :Reason For Study: DYSPNEA : :Ordering Physician: BONIFACIO, : :ISSA Performed By: Alverto Roche : :Referring: ISSA VALDOVINOS : + + Interpretation Summary The ejection fraction is estimated to be 45-50%. There is mild global hypokinesis of the left ventricle. The lateral and inferolateral anne are hypokinetic from base to distal. Grade II diastolic dysfunction with elevated left atrial pressure. The right ventricle is normal in size and function. The IVC is dilated (diameter is greater than 2.1 cm) yet it collapses greater than 50% with a sniff. This suggests a right atrial pressure of 8 mm Hg. No significant valvular abnormalities. Procedure: A two-dimensional transthoracic echocardiogram with color flow and Doppler was performed. The study quality was technically good. There is no prior echocardiogram noted for this patient. The patient was in normal sinus rhythm during the exam. Left Ventricle: The left ventricle is normal in size. There is normal left ventricular wall thickness. There is no ventricular septal defect visualized. The ejection fraction is estimated to be 45-50%. There is mild global hypokinesis of the left ventricle. The lateral and inferolateral anne are hypokinetic from base to distal. Diastolic parameters suggest a relaxation abnormality of the left ventricle, consistent with probable normal filling pressures. Grade II diastolic dysfunction with elevated left atrial pressure. Right Ventricle: The right ventricle is normal in size and function. Atria: The left atrium is mildly dilated. Right atrial size is normal. There is no Doppler evidence for an interatrial shunt. Mitral Valve: The mitral valve leaflets appear mildly thickened. There is trace mitral regurgitation. Aortic Valve: The aortic valve is trileaflet. The aortic valve opens well. There is no hemodynamically significant valvular aortic stenosis. No aortic regurgitation is present. Tricuspid Valve: The tricuspid valve leaflets are thin and pliable. No tricuspid regurgitation. Pulmonic Valve: The pulmonic valve is not well seen, but is grossly normal. There is trace pulmonic regurgitation. Great Vessels: The aortic root is normal size. The dimensions of the ascending aorta are normal. The pulmonary artery is normal size. The IVC is dilated (diameter is greater than 2.1 cm) yet it collapses greater than 50% with a sniff. This suggests a right atrial pressure of 8 mm Hg. Pericardium/ Pleura There is no pericardial effusion. There is no pleural effusion. MMode/2D Measurements & Calculations LVIDd: 5.8 cm LVOT diam: 2.0 cm LVIDs: 4.0 cm Ao root diam: 3.3 cm FS: 30.2 % asc Aorta Diam: 3.2 cm EPSS: 0.81 cm IVSd: 0.96 cm LVPWd: 0.89 cm LV mast. diameter/BSA (cm/m^2): 2.7 LV sys. diameter/BSA (cm/m^2): 1.9 LA A2 area: 22.8 cm2 RA long axis: 5.1 cm LA A4 area: 25.8 cm2 RA area: 18.2 cm2 LA length (vol): 5.9 cm RA vol: 55.3 ml LA vol: 84.4 ml RA : 25.7 ml/m2 LA vol index: 39.2 ml/m2 IVC diam: 2.4 cm RVD1 (basal): 3.5 cm RVD2 (mid): 2.6 cm TAPSE: 2.5 cm Doppler Measurements & Calculations Ao V2 max: 175.3 cm/sec LVOT Max Mata: 97.8 cm/sec Ao V2 mean: 126.4 cm/sec LV V1 max P.8 mmHg Ao max P.3 mmHg LV V1 VTI: 23.9 cm Ao mean P.0 mmHg JANEE(I,D): 1.8 cm2 Ao V2 VTI: 39.4 cm JANEE(V,D): 1.7 cm2 sev ratio: 0.60 JANEE indexed to BSA (cm^2/m^2): 0.85 MV E max mata: 94.3 cm/sec PA V2 max: 90.8 cm/sec MV A max mata: 132.1 cm/sec PA V2 mean: 66.8 cm/sec MV E/A: 0.71 PA mean P.0 mmHg Med Peak E' Mata: 4.5 cm/sec PA pr(Accel): 53.3 mmHg E/E' med: 20.9 Lat Peak E' Mata: 4.0 cm/sec E/E' lat: 23.7 E/e' average: 22.3 MV dec time: 0.28 sec SV(LVOT): 72.2 ml Reading Physician:11:13 AM
[2025-03-05 10:45] LABS: TSH w/ Reflex to FT4 4.50 uIU/mL (0.47-4.68)
[2025-03-06 07:39] LABS: Calcium 9.8 mg/dL (8.6-10.2); Parathyroid Hormone, Intact 27 pg/mL (15-65)
== END ==
LOC: ECHO 08:03
PROVIDERS: PCP Family Medicine; Referring Provider Family Medicine; Visit Provider Family Medicine
DX: I10 Essential (primary) hypertension (principal); R07.9 Chest pain, unspecified; R06.09 Other forms of dyspnea; I21.4 Non-ST elevation (NSTEMI) myocardial infarction; R79.89 Other specified abnormal findings of blood chemistry; R97.20 Elevated prostate specific antigen [PSA]
CPT/HCPCS: 36415; 82310; 83970; 84443; 93306